=== PATIENT | female | born 1985 | race Caucasian/White ===

== ENCOUNTER 2019-08-16 15:44 | Emergency (ER) | payer OTHER ==
[~2019-08-16] VITALS: Ht 157.4 cm; Wt 68.1 kg
--- NOTE | 2019-08-16 15:52 | ED Neurological Problem ---
General Stated Complaint: SEIZURES Source: patient History of Present Illness Date Seen by Provider: Aug 16, 2019 Time Seen by Provider: 15:42 Initial Comments 34-year-old female brought in by EMS due to "seizures" patient has a history of seizures per her and was on Keppra to 5 months ago. Patient reports she quit taking the Keppra due to financial reasons at that time. Patient is currently incarcerated and has been incarcerated for about a week and a half. Patient was also drinking significant prior to incarceration. Patient did have loss of bladder but no tongue biting she did have some mild bleeding from her nose that was very very minimal. Patient states her neurologist is and Rosie. They report that she had approximate 4 witnessed seizures by staff at the alf. Allergies and Home Medications Allergies Coded Allergies: No Known Drug Allergies (Unverified , 08/16/19) Patient Home Medication List Home Medication List Reviewed: Yes Review of Systems Review of Systems Constitutional: see HPI Eyes: See HPI Ears, Nose, Mouth, Throat: no symptoms reported Respiratory: no symptoms reported Cardiovascular: no symptoms reported Genitourinary: see HPI Psychiatric/Neurological: See HPI Past [id number] Hx Patient Social History Recent Foreign Travel: No Contact w/Someone Who Travel: No Physical Exam Vital Signs Vital Signs - First Documented 08/16/19 15:47 Temp 36.3 Pulse 86 Resp 20 B/P (MAP) 122/74 (90) Pulse Ox 100 O2 Delivery Room Air Capillary Refill : Height, Weight, BMI Height: '" Weight: lbs. oz. 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, no motor/sensory deficits Crainal Nerves: normal hearing, normal speech Motor/Sensory: no motor deficit, no sensory deficit Skin: normal color, warm/dry Progress/Results/Core Measures Results/Orders Lab Results Laboratory Tests Test 08/16/19 13:50 08/16/19 15:30 Range/Units White Blood Count 6.0 4.3-11.0 10^3/uL Red Blood Count 4.13 L 4.35-5.85 10^6/uL Hemoglobin 11.9 11.5-16.0 G/DL Hematocrit 38 35-52 % Mean Corpuscular Volume 92 80-99 FL Mean Corpuscular Hemoglobin 29 25-34 PG Mean Corpuscular Hemoglobin Concent 31 L 32-36 G/DL Red Cell Distribution Width 12.7 10.0-14.5 % Platelet Count 289 130-400 10^3/uL Mean Platelet Volume 9.7 7.4-10.4 FL Sodium Level 140 135-145 MMOL/L Potassium Level 4.3 3.6-5.0 MMOL/L Chloride Level 107 98-107 MMOL/L Carbon Dioxide Level 21 21-32 MMOL/L Anion Gap 12 5-14 MMOL/L Blood Urea Nitrogen 9 7-18 MG/DL Creatinine 0.80 0.60-1.30 MG/DL Estimat Glomerular Filtration Rate > 60 BUN/Creatinine Ratio 11 Glucose Level 93 70-105 MG/DL Calcium Level 9.1 8.5-10.1 MG/DL Corrected Calcium 9.1 8.5-10.1 MG/DL Total Bilirubin 0.2 0.1-1.0 MG/DL Aspartate Amino Transf (AST/SGOT) 13 5-34 U/L Alanine Aminotransferase (ALT/SGPT) 10 0-55 U/L Alkaline Phosphatase 52 40-136 U/L Total Protein 6.7 6.4-8.2 GM/DL Albumin 4.0 3.2-4.5 GM/DL Serum Alcohol < 10 <10 MG/DL Urine Color YELLOW Urine Clarity CLEAR Urine pH 7.0 5-9 Urine Specific [place] <1.005 1.016-1.022 Urine Protein NEGATIVE NEGATIVE Urine Glucose (UA) NEGATIVE NEGATIVE Urine Ketones NEGATIVE NEGATIVE Urine Nitrite NEGATIVE NEGATIVE Urine Bilirubin NEGATIVE NEGATIVE Urine Urobilinogen 0.2 < = 1.0 MG/DL Urine Leukocyte Esterase NEGATIVE NEGATIVE Urine RBC (Auto) 3+ H NEGATIVE Urine RBC 5-10 H /HPF Urine WBC NONE /HPF Urine Squamous Epithelial Cells 2-5 /HPF Urine Crystals NONE /LPF Urine Bacteria NONE /HPF Urine Casts NONE /LPF Urine Mucus NEGATIVE /LPF Urine Culture Indicated NO Urine Opiates Screen NEGATIVE NEGATIVE Urine Oxycodone Screen NEGATIVE NEGATIVE Urine Methadone Screen NEGATIVE NEGATIVE Urine Propoxyphene Screen NEGATIVE NEGATIVE Urine Barbiturates Screen NEGATIVE NEGATIVE Ur Tricyclic Antidepressants Screen NEGATIVE NEGATIVE Urine Phencyclidine Screen NEGATIVE NEGATIVE Urine Amphetamines Screen NEGATIVE NEGATIVE Urine Methamphetamines Screen NEGATIVE NEGATIVE Urine Benzodiazepines Screen NEGATIVE NEGATIVE Urine Cocaine Screen NEGATIVE NEGATIVE Urine Cannabinoids Screen NEGATIVE NEGATIVE My Orders Orders - CHAVEZDILLON L DO Alcohol (08/16/19 15:52) Cbc No Diff (08/16/19 15:52) Comprehensive Metabolic Panel (08/16/19 15:52) Drug Screen Stat (Urine) (08/16/19 15:52) Ua Culture If Indicated (08/16/19 15:52) Levetiracetam Injection (Keppra Injectio (08/16/19 21:00) Levetiracetam Injection (Keppra Injectio (08/16/19 16:20) Ns (Ivpb) (Sodium Chloride 0.9% Ivpb Bag (08/16/19 16:20) Lorazepam Injection (Ativan Injection) (08/16/19 17:00) Acetaminophen Tablet (Tylenol Tablet) (08/16/19 19:30) Medications Given in ED Current Medications Medications Dose Ordered Sig/Helga Route Start Time Stop Time Status Last Admin Dose Admin Acetaminophen 1,000 mg ONCE ONCE PO 08/16/19 19:30 08/16/19 19:31 DC 08/16/19 19:32 1,000 MG Lorazepam 2 mg ONCE ONCE IVP 08/16/19 17:00 08/16/19 17:01 DC 08/16/19 17:05 2 MG Vital Signs/I&O 08/16/19 08/16/19 08/16/19 15:47 17:00 19:53 Temp 36.3 37.0 Pulse 86 94 110 Resp 20 20 20 B/P (MAP) 122/74 (90) 122/80 (94) 136/79 Pulse Ox 100 100 100 O2 Delivery Room Air Room Air Room Air Progress Progress Note : Time: 16:44 Progress Note Patient was having frequent "seizure-like activity" that lasted a few seconds. D uring her activity she was able to resist U moving her arm, was able to control her arm on arm drop. The activity was very suggestive of a pseudoseizure. Patient was offered transfer to [facility] where her neurologist is. Patient however states that she does not want to go back that she would prefer just to go back to alf. Patient was given Keppra thousand milligrams here in the ER. 1740 patient continued to have a few seizure-like activities. I then gave her some Ativan 2 mg. Patient to be transferred to [facility] due to this frequent seizure-like activity. Discussed with Dr. Carver who will accept her to the ICU for further evaluation and workup. Departure Impression Primary Impression: Seizure-like activity Disposition: XFER SHT-TRM HOSP Condition: Improved Transfer Transfer Reason: Exceeds level of care Time Spoke to Accepting Phy: 17:30 Transfer Progress Notes Patient being transferred due to need for neurology Transfer Facility: [facility] Method of Transfer: EMS Departure-Patient Inst. Referrals: NO,LOCAL PHYSICIAN (PCP/Family) Primary Care Physician DILLON CHAVEZ DO Aug 16, 2019 15:52
[2019-08-16 16:08] LABS: HEMOGLOBIN 11.9 G/DL (11.5-16.0)
[2019-08-16 16:09] LABS: MEAN PLATELET VOLUME 9.7 FL (7.4-10.4); RED CELL DISTRIBUTION WIDTH 12.7 % (10.0-14.5)
[2019-08-16] MEDS ORDERED: NS (IVPB) 100 ML ONE (16:20)
[2019-08-16] MEDS ORDERED: LEVETIRACETAM 500 MG/5 ML (KEPPRA) VIAL IV ONE (16:20)
[2019-08-16 16:25] LABS: ALANINE AMINOTRANSFERASE 10 U/L (0-55); ALKALINE PHOSPHATASE 52 U/L (40-136); BILIRUBIN,TOTAL 0.2 MG/DL (0.1-1.0); BUN/CREATININE RATIO 11; CALCIUM 9.1 MG/DL (8.5-10.1); CARBON DIOXIDE 21 MMOL/L (21-32); CHLORIDE 107 MMOL/L (98-107); GFR ESTIMATED > 60; GLUCOSE 93 MG/DL (70-105); POTASSIUM 4.3 MMOL/L (3.6-5.0); SODIUM 140 MMOL/L (135-145); TOTAL PROTEIN 6.7 GM/DL (6.4-8.2)
[2019-08-16] MEDS: LEVETIRACETAM INJECTION 1,000 MG in NS (IVPB) 100 ML IV SCH ×2 (16:42→16:43)
[2019-08-16 17:00] VITALS: BP 122/80
[2019-08-16] MEDS ORDERED: LORazepam INJ 2 MG/ML (ATIVAN) VIAL IVP ONE (17:00)
--- NOTE | 2019-08-16 17:00 | NUR ---
Since patients arrival approximately 8 to 10 seizures have been observed. The patient exhibits tonic like activity for approximatley 1 to 2 minutes per episode. She has had several episodes of urine incontinence with the seizure like activity.
--- NOTE | 2019-08-16 17:35 | NUR ---
Spoke to the Coco Nguyen nurse at the [facility] and updated her on the patients status and impending transfer to [facility].
[2019-08-16 17:46] LABS: CLARITY,URINE CLEAR; COLOR,URINE YELLOW; PROTEIN,URINE NEGATIVE (NEGATIVE)
[2019-08-16 17:47] LABS: BILIRUBIN,URINE NEGATIVE (NEGATIVE); GLUCOSE, URINE (UA) NEGATIVE (NEGATIVE); KETONES,URINE NEGATIVE (NEGATIVE); LEUKOCYTE ESTERASE ,URINE NEGATIVE (NEGATIVE); NITRITE,URINE NEGATIVE (NEGATIVE)
[2019-08-16 17:52] LABS: AMPHETAMINE SCREEN, URINE NEGATIVE (NEGATIVE); BARBITURATE SCREEN URINE NEGATIVE (NEGATIVE); BENZODIAZEPINES SCREEN URINE NEGATIVE (NEGATIVE); CANNABINOID SCREEN, URINE NEGATIVE (NEGATIVE); COCAINE SCREEN URINE NEGATIVE (NEGATIVE); METHADONE STAT NEGATIVE (NEGATIVE); METHAMPHETAMINE SCREEN URINE S NEGATIVE (NEGATIVE); OPIATE SCREEN URINE NEGATIVE (NEGATIVE); OXYCODONE STAT NEGATIVE (NEGATIVE); PROPOXYPHENE STAT NEGATIVE (NEGATIVE); TRICYCLIC ANTIDEPRESSANTS SCRE NEGATIVE (NEGATIVE)
[2019-08-16] MEDS ORDERED: ACETAMINOPHEN 500 MG TAB (TYLENOL) PO ONE (19:30)
--- NOTE | 2019-08-16 19:38 | NUR ---
pt was given 1000 mg. tylenol as requested for face pain.
[2019-08-16 19:53] VITALS: BP 136/79
== END 2019-08-16 19:53 | disposition short-term general hospital (02) ==
LOC: ER FS 15:47
DX: R29.818 Other symptoms and signs involving the nervous system (principal)
CPT/HCPCS: 36415; 80053; 80306; 80320; 81000; 85027; 96374; 96375